=== PATIENT | female | born 1990 | race Two or more races ===

== ENCOUNTER 2018-12-27 14:26 | Emergency (ER) | payer MEDICAID ==
[~2018-12-27] VITALS: Ht 167.6 cm; Wt 72.6 kg
[2018-12-27 14:57] VITALS: BP 100/65
== END 2018-12-27 18:28 | disposition left against medical advice (07) ==
LOC: ER 14:26
DX: Z76.0 Encounter for issue of repeat prescription (principal); Z53.21 Procedure and treatment not carried out due to patient leaving prior to being seen by health care provider

== ENCOUNTER 2020-12-27 03:12 | Emergency (ER) | payer MEDICAID ==
[~2020-12-27] VITALS: Ht 170.2 cm; Wt 90.7 kg
[2020-12-27 03:13] VITALS: BP 124/89
[2020-12-27 04:19] LABS: Basophils # (auto) 0 10 ^3/uL (0-0.2); Basophils % (auto) 0.9 % (0.0-2.0); Eosinophils # (auto) 0.1 10 ^3/uL (0-0.8); Eosinophils % (auto) 2.7 % (0.0-7.0); Hemoglobin 13.7 g/dL (12.2-16.2); Lymphocytes # (auto) 2.3 10 ^3/uL (0.4-5.4); Lymphocytes % (auto) 45.5 % (10.0-50.0); Mean Corpuscular Hemoglobin 28.8 pg (28.0-32.0); Mean Corpuscular Hgb Conc. 32.5 g/dL (32.0-36.0); Mean Corpuscular Volume 88.4 fL (80.0-100.0); Monocytes # (auto) 0.4 10 ^3/uL (0-1.3); Monocytes % (auto) 8.6 % (0.0-12.0); Neutrophils # (auto) 2.1 10 ^3/uL (1.6-8.6); Neutrophils % (auto) 42.3 % (37.0-80.0); Nucleated Red Blood Cells % 0.1 %; Red Blood Cells 4.75 10^6/uL (4.0-5.20); Red Cell Distribution Width 16.1 % (11.8-14.3)
[2020-12-27 04:34] LABS: Albumin 3.8 g/dL (3.4-5.0); Calcium 8.5 mg/dL (8.5-10.1); Potassium 4.2 mmol/L (3.5-5.1)
[2020-12-27 04:38] LABS: BUN/Creatinine Ratio 14.8; Bilirubin, Total 0.6 mg/dL (0.2-1.0); Total Protein 8.5 g/dL (6.4-8.2)
[2020-12-27 05:38] LABS: Urine Bacteria NONE SEEN /hpf (None Seen); Urine Blood Negative /uL (Negative); Urine Specific Gravity 1.003 (1.001-1.035); Urine WBC <1 /hpf (0 - 5)
== END 2020-12-27 11:27 | disposition left against medical advice (07) ==
LOC: ER 03:12
DX: R10.9 Unspecified abdominal pain (principal); R11.2 Nausea with vomiting, unspecified; Z53.21 Procedure and treatment not carried out due to patient leaving prior to being seen by health care provider
CPT/HCPCS: 36415; 80053; 81001; 83690; 85025